=== PATIENT | female | born 1965 | race Caucasian/White ===

== ENCOUNTER 2017-06-07 22:41 | Emergency (ER) | payer MEDICAID, OTHER ==
[~2017-06-07] VITALS: Ht 157.5 cm; Wt 115.6 kg
[~2017-06-07 22:41] MED LIST: ALBU8I INH; AMLO5 PO; BENZ100 PO; DUONI NEB; MAPA325T6 PO; OSEL75 PO; PRED10 PO; PRED20 PO
[2017-06-07 22:44] VITALS: BP 231/96; PULSE 84; RESP 20; TEMP 99.3; O2SAT 98
[2017-06-07] MEDS ORDERED: ALBU0.63 NEB (23:07)
[2017-06-07] MEDS ORDERED: POTA10TA2 PO (23:07)
[2017-06-07] MEDS ORDERED: ADVA500A INH (23:07)
[2017-06-07] MEDS ORDERED: HYDR25TA5 PO (23:07)
[2017-06-07] MEDS ORDERED: ALPR.25 PO (23:07)
[2017-06-07 23:09] VITALS: BP 168/91; PULSE 85; RESP 20; TEMP 98.1; O2SAT 97
--- NOTE | 2017-06-07 23:39 | PD ---
HPI Chief Complaint: ENT Complaint Time Seen by Provider: 23:35 Travel History International Travel<30 days: No Contact w/Intl Traveler<30days: No Traveled to known affect area: No History of Present Illness HPI 52-year-old female presents to the emergency department for complaint of sore throat and concerned about having strep throat. Patient has history of asthma and has noted increased use of her inhaler and her nebulizer at home. Patient does not report any fever. Patient's had nonproductive cough. Patient is currently on prednisone therapy. Patient also has history of hypertension and is prescribed HCTZ with potassium replacement. Patient is been compliant with her medications. Patient states that she has run family members with respiratory illness. Patient denies other concerns or complaints. Patient rates her throat pain 7/10 intensity. Patient is unable to identify exacerbating or alleviating factors. Patient denies decongestant use. PFSH Past Medical History Narrative Medical Tubal ligation and appendectomy Asthma anxiety hypertension no tobacco use: Nursing notes reviewed Asthma: Yes Autoimmune Disease: No Anxiety: Yes Heart Rhythm Problems: Yes Cardiovascular Problems: Yes (HTN) Diminished Hearing: No Endocrine: No Gastrointestinal Disorders: Yes Genitourinary: Yes Headaches: Yes Hypertension: Yes Immune Disorder: No Musculoskeletal: No Neurologic: No Respiratory: Yes (ASTHMA) Immunizations Current: Yes Tetanus Vaccination: Unknown ?: Not LMP: 2016 : 5 Para: 4 Miscarriage: 1 : 0 Tubal Ligation: Yes Past Surgical History Abdominal Surgery: Yes (APPPENDIX AND GALL BLADDER) Appendectomy: Yes Section: Yes Cholecystectomy: Yes Gynecologic Surgery: Yes (C SECTION AND TUBES TIED) Other Surgery: Yes Social History Alcohol Use: Yes (social) Tobacco Use: No Substance Use: No Allergies-Medications (Allergen,Severity, Reaction): Coded Allergies: amoxicillin (Unverified Allergy, Severe, Rash, 03/18/17) clindamycin (Unverified Allergy, Severe, unknown, 03/18/17) penicillin G (Unverified Allergy, Severe, "RASH", 03/18/17) acetaminophen (Unverified Adverse Reaction, Severe, "flushing", 03/18/17) hydrocodone (Unverified Adverse Reaction, Severe, "flushing", 03/18/17) *MDRO Multi-Drug Resistant Organism (Verified Adverse Reaction, Unknown, ) MRSA (wound) - 2010 Reported Meds & Prescriptions Reported Meds & Active Scripts Active Zithromax Z-Aamir (Azithromycin) 250 Mg Dspk 250 Mg PO DIRECTED 500 MG (2 tabs) day 1, then 1 tab days 2-5. Reported Potassium Chloride ER (Potassium Chloride) 10 Meq Tab 10 Meq PO BID Xanax (Alprazolam) 0.25 Mg Tab 0.25 Mg PO Q4H PRN Albuterol Neb (Albuterol Sulfate) 0.63 Mg/3 Ml Neb 0.63 Mg NEB Q4HR NEB PRN Hydrochlorothiazide 25 Mg Tab 25 Mg PO DAILY Advair Diskus Inh (Fluticasone-Salmeterol Inh) 500-50 Mcg/Blist Aer 1 Puff INH QD Rinse mouth after use. Review of Systems Except as stated in HPI: all other systems reviewed are Neg General / Constitutional: No: Fever Eyes: No: Visual changes HENT: Positive: Sore Throat, Congestion Cardiovascular: No: Chest Pain or Discomfort Respiratory: Positive: Cough, Shortness of Breath, Wheezing Gastrointestinal: No: Vomiting, Abdominal Pain Genitourinary: No: Flank Pain Musculoskeletal: Positive: Myalgias, Arthralgias Skin: No Rash Neurologic: No: Weakness Psychiatric: Positive: Anxiety Hematologic/Lymphatic: No: Lymph Node Enlargement Physical Exam Narrative GENERAL: Well-developed well-nourished female in no acute distress no respiratory distress SKIN: Warm and dry. HEAD: Normocephalic. EYES: No scleral icterus. No injection or drainage. ENT: Mucous membranes moist airway is patent posterior pharyngeal erythema and scant exudative change. NECK: Supple, trachea midline. No JVD or lymphadenopathy. CARDIOVASCULAR: Regular rate and rhythm without murmurs, gallops, or rubs. RESPIRATORY: Breath sounds equal bilaterally rare index were a wheeze but corrects posttussive only. No accessory muscle use. GASTROINTESTINAL: Abdomen soft, non-tender, nondistended. MUSCULOSKELETAL: No cyanosis, or edema. BACK: Nontender without obvious deformity. No CVA tenderness. Data Data Last Documented VS Vital Signs Date Time Temp Pulse Resp B/P (MAP) Pulse Ox O2 Delivery O2 Flow Rate FiO2 06/08/17 01:47 06/08/17 01:00 78 20 97 Room Air 06/07/17 23:09 98.1 Orders Orders Influenzae A/B Antigen (06/07/17 23:35) Acetaminophen (Tylenol) (06/08/17 00:15) Group A Rapid Strep Screen (06/08/17 00:05) Ondansetron Odt (Zofran Odt) (06/08/17 00:15) Azithromycin (Zithromax) (06/08/17 01:15) Ed Discharge Order (06/08/17 01:13) MDM Medical Decision Making Medical Screen Exam Complete: Yes Emergency Medical Condition: Yes Medical Record Reviewed: Yes Interpretation(s) Influenza A/B antigen: Negative Strep test: Positive Differential Diagnosis Pharyngitis tonsillitis influenza bronchitis uncontrolled hypertension steroid induced hypertension Narrative Course specimens collected for influenza A/B antigen and rapid strep antigen Patient complains of mild headache given acetaminophen at her request Patient given one-time dose of Zofran 4 mg sublingual Patient's rapid strep antigen test is positive given azithromycin times one dose Influenza A/B antigen negative Patient reports feeling clinically improved Diagnosis Primary Impression: Strep pharyngitis Additional Impressions: History of asthma History of hypertension Referrals: Primary Care Physician 2 days Patient Instructions: General Instructions Additional Instructions: Increase fluid hydration Take blood pressure medication as prescribed as needed Follow-up with your primary care provider Return to the emergency department for any concerns or change in condition Do not use [id number] decongestant medications Take ibuprofen/Advil/Motrin every 6-8 hours as needed for fever 100.4F or greater Med/Other Pt SpecificInfo: Prescription(s) given Scripts Azithromycin (Zithromax Z-Aamir) 250 Mg Dspk 250 MG PO DIRECTED for Infection, #1 DSPK 0 Refills 500 MG (2 tabs) day 1, then 1 tab days 2-5. Prov: Елена Caldwell MD 06/08/17 Disposition: 01 DISCHARGE HOME Condition: Stable Елена Caldwell MD Jun 07, 2017 23:39
[2017-06-08] MEDS ORDERED: ONDANSETRON ODT 4 MG TAB PO ONE (00:15)
[2017-06-08] MEDS ORDERED: ACETAMINOPHEN 500 MG CPLT PO ONE (00:15)
[2017-06-08 01:00] VITALS: BP 187/75; PULSE 78; RESP 20; O2SAT 97
[2017-06-08] MEDS ORDERED: ZITHTAB PO (01:15)
[2017-06-08] MEDS ORDERED: AZITHROMYCIN 250 MG TAB PO ONE (01:15)
== END 2017-06-08 01:00 | disposition home or self-care (01) ==
LOC: PHED 22:41
DX: J02.0 Streptococcal pharyngitis (principal); B95.0 Streptococcus, group A, as the cause of diseases classified elsewhere; J45.909 Unspecified asthma, uncomplicated; I10 Essential (primary) hypertension
CPT/HCPCS: 87804; 87880; 99283

== ENCOUNTER 2018-01-22 12:00 | Emergency (ER) | payer MEDICAID ==
[~2018-01-22] VITALS: Ht 157.5 cm; Wt 117.0 kg
[~2018-01-22 12:00] MED LIST changes: +ADVA500A INH; +ALBU0.63 NEB; -ALBU8I INH; +ALPR.25 PO; -AMLO5 PO; -BENZ100 PO; -DUONI NEB; +HYDR25TA5 PO; -MAPA325T6 PO; -OSEL75 PO; +POTA10TA2 PO; -PRED10 PO; -PRED20 PO; +ZITHTAB PO
[2018-01-22 12:09] VITALS: BP 151/77; PULSE 84; RESP 18; TEMP 98; O2SAT 96
--- NOTE | 2018-01-22 12:50 | PD ---
HPI Chief Complaint: Respiratory Symptoms Time Seen by Provider: 12:46 Travel History International Travel<30 days: No Contact w/Intl Traveler<30days: No Traveled to known affect area: No History of Present Illness HPI 52-year-old female patient with history of asthma, presents to the ER today because she states that over the last 5 days, she has had problems with intermittent asthma attacks, has started prednisone and is feeling better, but also has noticed that she is bleeding from somewhere, thinks it is her gums, because she woke up the other day with blood in her mouth, but denies any coughing or vomiting up before the episode. She states that her breathing actually has been improved. She denies being on any blood thinners. Modifying Factors: None Associated Signs & Symptoms: Bleeding in her mouth, intermittent asthma attacks Risk Factors: History of asthma PFSH Past Medical History Asthma: Yes Autoimmune Disease: No Anxiety: Yes Heart Rhythm Problems: Yes Cardiovascular Problems: Yes (HTN) Diminished Hearing: No Endocrine: No Gastrointestinal Disorders: Yes Genitourinary: Yes Headaches: Yes Hypertension: Yes Immune Disorder: No Musculoskeletal: No Neurologic: No Respiratory: Yes (ASTHMA) Immunizations Current: Yes ?: Not : 5 Para: 4 Miscarriage: 1 : 0 Tubal Ligation: Yes Past Surgical History Abdominal Surgery: Yes (APPPENDIX AND GALL BLADDER) Appendectomy: Yes Section: Yes Cholecystectomy: Yes Gynecologic Surgery: Yes (C SECTION AND TUBES TIED) Other Surgery: Yes Social History Alcohol Use: Yes (social) Tobacco Use: No Substance Use: No Allergies-Medications (Allergen,Severity, Reaction): Coded Allergies: amoxicillin (Unverified Allergy, Severe, Rash, 01/22/18) clindamycin (Unverified Allergy, Severe, unknown, 01/22/18) penicillin G (Unverified Allergy, Severe, "RASH", 01/22/18) acetaminophen (Unverified Adverse Reaction, Severe, "flushing", 01/22/18) hydrocodone (Unverified Adverse Reaction, Severe, "flushing", 01/22/18) *MDRO Multi-Drug Resistant Organism (Verified Adverse Reaction, Unknown, ) MRSA (wound) - 2010 Reported Meds & Prescriptions Reported Meds & Active Scripts Active Reported Xanax (Alprazolam) 0.25 Mg Tab 0.25 Mg PO Q4H PRN Albuterol Neb (Albuterol Sulfate) 0.63 Mg/3 Ml Neb 0.63 Mg NEB Q4HR NEB PRN Hydrochlorothiazide 25 Mg Tab 25 Mg PO DAILY Advair Diskus Inh (Fluticasone-Salmeterol Inh) 500-50 Mcg/Blist Aer 1 Puff INH QD Rinse mouth after use. Review of Systems Except as stated in HPI: all other systems reviewed are Neg Physical Exam Narrative GENERAL: Well-developed middle-age female patient currently in mild distress. Appears mildly anxious. Awake and oriented 3. SKIN: Focused skin assessment warm/dry. HEAD: Atraumatic. Normocephalic. EYES: Pupils equal and round. No scleral icterus. No injection or drainage. ENT: Mucosa pink and moist. No erythema or exudates. No uvular edema. No uvular , palatal, or tonsillar deviation. Airway patent. Nasal turbinates appear normal without nasal blood, purulent drainage or septal hematoma. DENTAL: No loose or chipped teeth. No malocclusion. I do not see any sites of gingival bleeding. NECK: Trachea midline. No JVD. CARDIOVASCULAR: Regular rate and rhythm. No murmur appreciated. RESPIRATORY: No accessory muscle use. Clear to auscultation. Breath sounds equal bilaterally. GASTROINTESTINAL: Abdomen soft, non-tender, nondistended. Hepatic and splenic margins not palpable. MUSCULOSKELETAL: No obvious deformities. No clubbing. No cyanosis. No edema. NEUROLOGICAL: Awake and alert. No obvious cranial nerve deficits. Motor grossly within normal limits. Normal speech. PSYCHIATRIC: Appropriate mood and affect; insight and judgment normal. Data Data Last Documented VS Vital Signs Date Time Temp Pulse Resp B/P (MAP) Pulse Ox O2 Delivery O2 Flow Rate FiO2 01/22/18 13:45 18 01/22/18 12:09 98.0 84 151/77 (101) 96 Orders Orders Complete Blood Count With Diff (01/22/18 12:46) Basic Metabolic Panel (Bmp) (01/22/18 12:46) Chest, Single Ap (01/22/18 12:46) Acetaminophen (Tylenol) (01/22/18 13:00) Ed Discharge Order (01/22/18 14:02) Labs Laboratory Tests Test 01/22/18 12:50 White Blood Count 10.4 TH/MM3 Red Blood Count 4.89 MIL/MM3 Hemoglobin 14.5 GM/DL Hematocrit 43.8 % Mean Corpuscular Volume 89.6 FL Mean Corpuscular Hemoglobin 29.6 PG Mean Corpuscular Hemoglobin Concent 33.1 % Red Cell Distribution Width 12.7 % Platelet Count 229 TH/MM3 Mean Platelet Volume 8.3 FL Neutrophils (%) (Auto) 56.8 % Lymphocytes (%) (Auto) 32.7 % Monocytes (%) (Auto) 6.9 % Eosinophils (%) (Auto) 3.1 % Basophils (%) (Auto) 0.5 % Neutrophils # (Auto) 5.9 TH/MM3 Lymphocytes # (Auto) 3.4 TH/MM3 Monocytes # (Auto) 0.7 TH/MM3 Eosinophils # (Auto) 0.3 TH/MM3 Basophils # (Auto) 0.1 TH/MM3 CBC Comment DIFF FINAL Differential Comment Blood Urea Nitrogen 12 MG/DL Creatinine 0.80 MG/DL Random Glucose 107 MG/DL Calcium Level 8.9 MG/DL Sodium Level 139 MEQ/L Potassium Level 3.2 MEQ/L Chloride Level 102 MEQ/L Carbon Dioxide Level 30.0 MEQ/L Anion Gap 7 MEQ/L Estimat Glomerular Filtration Rate 76 ML/MIN [facility] Medical Decision Making Medical Screen Exam Complete: Yes Emergency Medical Condition: Yes Medical Record Reviewed: Yes Interpretation(s) Laboratory Tests Test 01/22/18 12:50 Random Glucose 107 MG/DL (74-106) Potassium Level 3.2 MEQ/L (3.5-5.1) Estimat Glomerular Filtration Rate 76 ML/MIN (>89) Last 24 hours Impressions Chest X-Ray 01/22/18 1246 Signed Impressions: CONCLUSION: No acute cardiopulmonary process. Differential Diagnosis Blood in the mouth, intermittent asthma attacks: Gingival bleeding versus epistaxis versus bronchitis Narrative Course Chest x-ray did not show any signs of acute pulmonary processes. Vital signs are stable in the ER. Pulmonary exam shows that she has a clear lung currently. She has no current bleeding and her H&H is stable. At this point, my plan would be to release her with follow-up to primary care doctor. Return for worsening in symptoms as necessary. The plan has been discussed with her and she states understanding. Diagnosis Primary Impression: Asthma exacerbation Med/Other Pt SpecificInfo: Prescription(s) given Scripts Prednisone (Prednisone) 50 Mg Tab 50 MG PO DAILY for 3 Days, #3 TAB 0 Refills Prov: Leida Eli MD 01/22/18 Albuterol Neb (Albuterol Neb) 0.63 Mg/3 Ml Neb 0.63 MG NEB Q4HR NEB Y for SHORTNESS OF BREATH, #25 NEBULE 0 Refills Prov: Leida Eli MD 01/22/18 Disposition: 01 DISCHARGE HOME Condition: Stable Leida Eli MD Jan 22, 2018 12:50
[2018-01-22] MEDS ORDERED: ACETAMINOPHEN 325 MG TAB PO ONE (13:00)
[2018-01-22 13:03] LABS: AUTOMATED NEUTROPHIL # 5.9 TH/MM3 (1.8-7.7); BASOPHIL # 0.1 TH/MM3 (0-0.2); BASOPHIL % 0.5 % (0.0-2.0); EOSINOPHIL # 0.3 TH/MM3 (0-0.4); EOSINOPHIL % 3.1 % (0.0-4.0); HEMATOCRIT 43.8 % (35.0-46.0); HEMOGLOBIN 14.5 GM/DL (11.6-15.3); LYMPH % 32.7 % (9.0-44.0); LYMPHOCYTE # 3.4 TH/MM3 (1.0-4.8); MEAN CELL VOLUME 89.6 FL (80.0-100.0); MEAN CORPUSCULAR HEMOGLOBIN 29.6 PG (27.0-34.0); MEAN CORPUSCULAR HGB CONC 33.1 % (32.0-36.0); MEAN PLATELET VOLUME 8.3 FL (7.0-11.0); MONO % 6.9 % (0.0-8.0); MONOCYTE # 0.7 TH/MM3 (0-0.9); NEUT % 56.8 % (16.0-70.0); PLATELET COUNT 229 TH/MM3 (150-450); RED BLOOD COUNT 4.89 MIL/MM3 (4.00-5.30); RED CELL DISTRIBUTION WIDTH 12.7 % (11.6-17.2); WHITE BLOOD COUNT 10.4 TH/MM3 (4.0-11.0)
[2018-01-22 13:14] LABS: CALCIUM 8.9 MG/DL (8.5-10.1)
[2018-01-22 13:18] LABS: CREATININE 0.8 MG/DL (0.50-1.00)
[2018-01-22 13:45] VITALS: RESP 18
--- NOTE | 2018-01-22 13:47 | RADRPT ---
EXAM DATE: 01/22/2018 1:20 PM EDT AGE/SEX: 52 years / Female INDICATIONS: Short of breath and right side chest pain for three days. CLINICAL DATA: This is the patient's initial encounter. Patient reports that signs and symptoms have been present for 3 days and indicates a pain score of 5/10. MEDICAL/SURGICAL HISTORY: Asthma. None. [place] [facility] [place]. . FINDINGS: A single AP view of the chest demonstrates the lungs to be symmetrically aerated without evidence of mass, infiltrate or effusion. The cardiomediastinal contours are unremarkable. Osseous structures a re intact. CONCLUSION: No acute cardiopulmonary process. Electronically signed by: Umer Mccray MD 01/22/2018 1:46 PM EDT
[2018-01-22] MEDS ORDERED: PRED50 PO (14:04)
[2018-01-22] MEDS ORDERED: ALBU0.63 NEB (14:04)
[2018-01-22 14:11] VITALS: BP 148/76
== END 2018-01-22 14:12 | disposition home or self-care (01) ==
LOC: PHED 12:00
DX: J45.901 Unspecified asthma with (acute) exacerbation (principal); K13.79 Other lesions of oral mucosa; I10 Essential (primary) hypertension; F41.9 Anxiety disorder, unspecified; Z86.79 Personal history of other diseases of the circulatory system; Z87.19 Personal history of other diseases of the digestive system; Z87.448 Personal history of other diseases of urinary system
CPT/HCPCS: 71045; 80048; 85025; 99284